=== PATIENT | female | born 1995 | race Caucasian/White ===

== ENCOUNTER 2020-06-26 14:09 | Emergency (ER) | payer OTHER ==
[~2020-06-26] VITALS: Ht 170.2 cm; Wt 124.7 kg
--- NOTE | 2020-06-26 14:53 | NUR ---
pt rec'd to er c/o fell 1 wek ago and has been dizzy , n/v sent to ct
[2020-06-26] MEDS ORDERED: ONDANSETRON HCL/PF - ER 4 MG/2 ML VIAL IV ONE (15:00)
[2020-06-26] MEDS ORDERED: IV NS 0.9% 1,000 ML BAG IV ONE (15:00)
[2020-06-26] MEDS ORDERED: ONDANSETRON HCL/PF 4 MG/2 ML VIAL ONE (15:12)
--- NOTE | 2020-06-26 15:20 | NUR ---
iv stasrated 20g ;eft ac labs drawn sent to lab
[2020-06-26 15:21] LABS: BASOPHILS # (AUTO) 0.1 /CMM (0.0-0.2); BASOPHILS % (AUTO) 0.6 % (0.0-2.0); EOSINOPHILS % (AUTO) 18.8 % (0.0-6.0); HEMATOCRIT 46 % (33-45); HEMOGLOBIN 15.2 g/dL (11.5-14.8); LYMPHOCYTES # (AUTO) 2.9 /CMM (0.8-4.8); LYMPHOCYTES % (AUTO) 23.3 % (20.0-44.0); MEAN CORPUSCULAR HGB CONC 33 g/dl (31.0-36.0); MEAN CORPUSCULAR VOLUME 89 fL (82-100); MONOCYTES # (AUTO) 0.6 /CMM (0.1-1.30); MONOCYTES % (AUTO) 5.3 % (2.0-12.0); NEUTROPHILS # (AUTO) 6.3 /CMM (1.8-8.9); PLATELET COUNT (AUTO) 290 /CMM (150-450); RED BLOOD CELL COUNT(AUTO) 5.17 MIL/uL (4.0-5.2); WHITE BLOOD COUNT (AUTO) 12.2 K/uL (4.3-11.0)
[2020-06-26 15:30] LABS: CALCIUM, SERUM 9.5 mg/dL (8.5-10.1); CARBON DIOXIDE 30 mmol/L (21-32); CHLORIDE 103 mmol/L (98-107); CREATININE 0.8 mg/dL (0.6-1.3); GLUCOSE 95 mg/dL (74-106); POTASSIUM 3.7 mmol/L (3.5-5.1); SODIUM SERUM 140 mmol/L (136-145); UREA NITROGEN, BLOOD 12 mg/dL (7-18)
[2020-06-26 15:42] LABS: ALANINE AMINOTRANSFERASE 34 U/L (12-78); ALBUMIN 4.1 g/dL (3.4-5.0); ALKALINE PHOSPHATASE 67 U/L (46-116); ASPARTATE AMINOTRANSFERASE 9 U/L (15-37); BILIRUBIN,TOTAL 0.5 mg/dL (0.2-1.0); LIPASE 91 U/L (73-393); TOTAL PROTEIN, SERUM 7.8 g/dL (6.4-8.2)
--- NOTE | 2020-06-26 16:13 | NUR ---
pt up to br voided ua sent to lab
--- NOTE | 2020-06-26 17:15 | NUR ---
IV removed. Catheter intact and site benign. Pressure and 4x4 applied to site. No bleeding noted. Patient discharged to home in stable condition. Written and verbal after care instructions given. Patient verbalizes understanding of instruction.
[2020-06-26 17:19] VITALS: BP 138/78
== END 2020-06-26 17:20 | disposition home or self-care (01) ==
LOC: ER 14:15
DX: R55 Syncope and collapse (principal); F07.81 Postconcussional syndrome
CPT/HCPCS: 36415; 70450; 80053; 83690; 84484; 84702; 85025; 93005; 96361; 96374; 99285; J2405; J7030

== ENCOUNTER 2020-08-31 23:41 | Emergency (ER) | payer OTHER ==
[~2020-08-31] VITALS: Ht 167.6 cm; Wt 122.5 kg
--- NOTE | 2020-09-01 | NUR ---
pt bibself c/o sob x5 days. Pt aaox4 breathing evenly and unlabored. Wheezes noted upon assessment. Per pt she was given a zpack for PNA. Pt skin warm, dry, and intact. Pt attached to monitor and pox. Pt given blanket and call light within reach.
[2020-09-01] MEDS ORDERED: predniSONE 10 MG TABLET ONE (00:27)
[2020-09-01] MEDS ORDERED: ALBUTEROL FS 2.5 MG/3 ML VIAL.NEB NEB ONE (00:30)
[2020-09-01] MEDS ORDERED: predniSONE 20 MG TABLET PO ONE (00:30)
[2020-09-01] MEDS ORDERED: IPRATROPIUM NEB FS 0.5 MG/2.5 ML AMPUL.NEB NEB ONE (00:30)
--- NOTE | 2020-09-01 00:31 | NUR ---
called rt for breathing tx
--- NOTE | 2020-09-01 00:35 | NUR ---
rt at bedside
[2020-09-01] MEDS ORDERED: ALBUTEROL FS 2.5 MG/3 ML VIAL.NEB ONE (00:42)
[2020-09-01] MEDS ORDERED: IPRATROPIUM NEB FS 0.5 MG/2.5 ML AMPUL.NEB ONE (00:42)
[2020-09-01] MEDS ORDERED: ALBU6.7H9 INH (01:17)
[2020-09-01] MEDS ORDERED: METH4TAB3 PO (01:17)
--- NOTE | 2020-09-01 01:36 | NUR ---
Patient discharged to home in stable condition. Written and verbal after care instructions given. Patient verbalizes understanding of instruction. Pt ambulatory with a steady gait
[2020-09-01 01:37] VITALS: BP 125/65
== END 2020-09-01 01:36 | disposition home or self-care (01) ==
LOC: ER 23:45
DX: J45.909 Unspecified asthma, uncomplicated (principal)
CPT/HCPCS: 71045; 94640; 99285; J7512 ×2